=== PATIENT | male | born 1955 | race Caucasian/White ===

== ENCOUNTER 2017-07-16 20:29 | Observation (INO) | payer OTHER ==
[~2017-07-16] VITALS: Ht 174 cm; Wt 88.4 kg
[2017-07-16 20:30] VITALS: O2SAT 97
[2017-07-16] MEDS ORDERED: SODIUM CHLOR 0.9% 1000 ML INJ 1,000 ML IV ONE (20:35)
[2017-07-16 20:46] LABS: AUTOMATED NEUTROPHIL # 7.1 TH/MM3 (1.8-7.7); BASOPHIL # 0.2 TH/MM3 (0-0.2); BASOPHIL % 1.4 % (0.0-2.0); EOSINOPHIL # 0.2 TH/MM3 (0-0.4); EOSINOPHIL % 1.7 % (0.0-4.0); HEMATOCRIT 39.5 % (39.0-51.0); LYMPH % 22.2 % (9.0-44.0); LYMPHOCYTE # 2.4 TH/MM3 (1.0-4.8); MEAN CELL VOLUME 88.9 FL (80.0-100.0); MEAN CORPUSCULAR HEMOGLOBIN 29.3 PG (27.0-34.0); MEAN CORPUSCULAR HGB CONC 32.9 % (32.0-36.0); MEAN PLATELET VOLUME 8.2 FL (7.0-11.0); MONO % 7.6 % (0.0-8.0); MONOCYTE # 0.8 TH/MM3 (0-0.9); NEUT % 67.1 % (16.0-70.0); PLATELET COUNT 346 TH/MM3 (150-450); RED BLOOD COUNT 4.45 MIL/MM3 (4.50-5.90); RED CELL DISTRIBUTION WIDTH 14.5 % (11.6-17.2); WHITE BLOOD COUNT 10.8 TH/MM3 (4.0-11.0)
--- NOTE | 2017-07-16 20:48 | PD ---
HPI Chief Complaint: Stroke Alert Time Seen by Provider: 20:34 Travel History International Travel<30 days: No Contact w/Intl Traveler<30days: No Traveled to known affect area: No History of Present Illness HPI This patient is brought in as a stroke alert. He is a 62-year-old male with history of CO and prior stroke. He is on baby aspirin and Plavix daily. Some point today he developed speech slurring which is new for him. It is unclear when. I spoke to his sister who is his medical power of endocrinology physician and she called paramedics when the apartment physical plant manager noticed him slurring his words was prior to arrival but it is unclear how long it has been going on. The patient has history of cognitive delay from prior stroke. His sister spoke with him yesterday and he was speaking fine. He is not having motor weakness or sensory loss. Symptom severity is moderate. Duration unknown. No alleviating factors. No exacerbating factors. PFSH Social History Alcohol Use: No Tobacco Use: No Substance Use: No Allergies-Medications (Allergen,Severity, Reaction): Coded Allergies: No Known Allergies (Unverified , 07/16/17) Reported Meds & Prescriptions Reported Meds & Active Scripts Active Reported Atorvastatin (Atorvastatin Calcium) 80 Mg Tab 80 Mg PO HS Terazosin (Terazosin HCl) 2 Mg Cap 2 Mg PO HS Hydralazine (Hydralazine HCl) 100 Mg Tab 25 Mg PO TID Take with meals Lorazepam 0.5 Mg Tab 0.5 Mg PO Q8H PRN Carvedilol 6.25 Mg Tab 6.25 Mg PO BID Plavix (Clopidogrel Bisulfate) 75 Mg Tab 75 Mg PO DAILY Aspirin 81 Mg Chew 81 Mg CHEW DAILY Amlodipine (Amlodipine Besylate) 10 Mg Tab 10 Mg PO DAILY Paroxetine (Paroxetine HCl) 10 Mg Tab 10 Mg PO DAILY Review of Systems General / Constitutional: No: Fever Eyes: No: Visual changes HENT: No: Headaches Cardiovascular: No: Chest Pain or Discomfort Respiratory: No: Shortness of Breath Gastrointestinal: No: Abdominal Pain Genitourinary: No: Dysuria Musculoskeletal: No: Pain Skin: No Rash Neurologic: Positive: Slurred Speech, No: Weakness Psychiatric: No: Depression Endocrine: No: Polydipsia Hematologic/Lymphatic: No: Easy Bruising Physical Exam Narrative GENERAL: Well-nourished, well-developed patient in no apparent distress. SKIN: Focused skin assessment reveals no rash and nodules. Skin is Warm and dry. HEAD: Atraumatic. Normocephalic. EYES: Pupils equal and round. No scleral icterus. No injection or drainage. ENT: No nasal bleeding or discharge. Mucous membranes pink and moist. NECK: Trachea midline. No JVD. CARDIOVASCULAR: Regular rate and rhythm. No murmur appreciated. RESPIRATORY: No accessory muscle use. Clear to auscultation. Breath sounds equal bilaterally. GASTROINTESTINAL: Abdomen soft, non-tender, nondistended. Hepatic and splenic margins not palpable. MUSCULOSKELETAL: No obvious deformities. No clubbing. No cyanosis. No edema. NEUROLOGICAL: Awake and alert. Has a subtle left-sided facial droop. Motor grossly within normal limits. slurred speech. Sensation subjectively intact PSYCHIATRIC: Appropriate mood and affect; insight and judgment is a bit diminished Data Data Last Documented VS Vital Signs Date Time Temp Pulse Resp B/P (MAP) Pulse Ox O2 Delivery O2 Flow Rate FiO2 07/16/17 21:14 76 18 96 Room Air 07/16/17 21:14 98.7 188/93 (124) 07/16/17 20:30 21 Orders Orders Neuro Checks Q2HX12,Q4H (07/16/17 20:35) Nursing Bedside Swallow Assess .ONCE (07/16/17 20:35) Activity Bed Rest (07/16/17 20:35) Prothrombin Time / Inr (Pt) (07/16/17 20:35) Act Partial Throm Time (Ptt) (07/16/17 20:35) Complete Blood Count With Diff (07/16/17 20:35) Basic Metabolic Panel (Bmp) (07/16/17 20:35) Fibrinogen (07/16/17 20:35) Creatine Kinase (Cpk) (07/16/17 20:35) Troponin I (07/16/17 20:35) Ua Includes Microscopic (07/16/17 20:35) Drug Screen, Random Urine (07/16/17 20:35) Type And Screen (07/16/17 20:35) Ct Brain W/O Iv Contrast(Rout) (07/16/17 ) Electrocardiogram (07/16/17 ) Consult Neurology (07/16/17 20:35) Sodium Chlor 0.9% 1000 Ml Inj (Ns 1000 M (07/16/17 20:35) Blood Glucose (07/16/17 20:35) Ecg Monitoring (07/16/17 20:35) Iv Access Insert/Monitor (07/16/17 20:35) NPO (07/16/17 20:35) Oximetry (07/16/17 20:35) Resp Oxygen Nc Stroke (07/16/17 ) (Hub Use Only)Inp Phy Cons/Ref (07/16/17 ) Place In Observation (07/16/17 ) Vital Signs (Adult) Q4H (07/16/17 21:55) Neuro Checks Q4H (07/16/17 21:55) Activity Oob With Assistance (07/16/17 21:55) Business Development Officer / Telemetry .CONTINUOUS (07/16/17 21:55) Diet Heart Healthy (07/17/17 Breakfast) Sodium Chloride 0.9% Flush (Ns Flush) (07/16/17 22:00) Sodium Chloride 0.9% Flush (Ns Flush) (07/17/17 09:00) Acetaminophen (Tylenol) (07/16/17 22:00) Ondansetron Inj (Zofran Inj) (07/16/17 22:00) Resp Oxygen Hussein C Titrat 1-4 L (07/16/17 ) Scd Bilateral/Knee High SUHA.BID (07/16/17 21:55) Naloxone Inj (Narcan Inj) (07/16/17 22:00) Magnesium Hydroxide Liq (Milk Of Magnesi (07/16/17 22:00) Sennosides (Senokot) (07/16/17 22:00) Bisacodyl Supp (Dulcolax Supp) (07/16/17 22:00) Lactulose Liq (Lactulose Liq) (07/16/17 22:00) Aspirin Ec (Ecotrin Ec) (07/17/17 09:00) Clopidogrel (Plavix) (07/17/17 09:00) Atorvastatin (Lipitor) (07/17/17 21:00) Admit Order (Ed Use Only) (07/16/17 22:14) Labs Laboratory Tests Test 07/16/17 20:35 White Blood Count 10.8 TH/MM3 Red Blood Count 4.45 MIL/MM3 Hemoglobin 13.0 GM/DL Hematocrit 39.5 % Mean Corpuscular Volume 88.9 FL Mean Corpuscular Hemoglobin 29.3 PG Mean Corpuscular Hemoglobin Concent 32.9 % Red Cell Distribution Width 14.5 % Platelet Count 346 TH/MM3 Mean Platelet Volume 8.2 FL Neutrophils (%) (Auto) 67.1 % Lymphocytes (%) (Auto) 22.2 % Monocytes (%) (Auto) 7.6 % Eosinophils (%) (Auto) 1.7 % Basophils (%) (Auto) 1.4 % Neutrophils # (Auto) 7.1 TH/MM3 Lymphocytes # (Auto) 2.4 TH/MM3 Monocytes # (Auto) 0.8 TH/MM3 Eosinophils # (Auto) 0.2 TH/MM3 Basophils # (Auto) 0.2 TH/MM3 CBC Comment DIFF FINAL Differential Comment Prothrombin Time 10.1 SEC Prothromb Time International Ratio 1.0 RATIO Activated Partial Thromboplast Time 20.7 SEC Fibrinogen 347 mg/dL Blood Urea Nitrogen 21 MG/DL Creatinine 1.90 MG/DL Random Glucose 103 MG/DL Calcium Level 9.1 MG/DL Sodium Level 141 MEQ/L Potassium Level 3.7 MEQ/L Chloride Level 110 MEQ/L Carbon Dioxide Level 23.3 MEQ/L Anion Gap 8 MEQ/L Estimat Glomerular Filtration Rate 36 ML/MIN Total Creatine Kinase 213 U/L Troponin I 0.04 NG/ML MDM Medical Decision Making Medical Screen Exam Complete: Yes Emergency Medical Condition: Yes Medical Record Reviewed: Yes Differential Diagnosis Acute ischemic stroke, hemorrhagic stroke, medication side effect Narrative Course I have reviewed the patient's electronic medical record. Patient has never been to this facility before. I spoke with sister for further history. He has history of CVA and CO and hypertension. He is on for 5 different antihypertensives. Also aspirin and Plavix daily. He saw Dr. Mills from neurology one time as an outpatient I ordered the stroke alert protocol After examination he went emergently to brain CT Neurologist was paged, I spoke with Dr. Conti Patient is not a TPA candidate. He agrees. There is no known time of onset so he does not meet any 3 hour window. Also, his NIH scale is exceedingly low. His only deficit is speech slurring. I reviewed brain CT with radiologist. There is large area of encephalomalacia from prior stroke. No acute hemorrhage Lab studies reviewed Patient is in a sinus rhythm He is hypertensive in the 180s systolic. He has chronic hypertension. We will use permissive hypertension and follow this and treat if above 220 systolic I reviewed with hospitalist Patient has an acute ischemic CVA manifesting primarily speech slurring and not a TPA candidate. He is recommending telemetry observation status Critical Care Narrative Aggregate critical care time was 35 minutes. Time to perform other separately billable procedures was not included in the critical care time. My time did not include minutes spent treating any other patients simultaneously or on activities that did not directly contribute to the patient's treatment. The services I provided to this patient were to treat and/or prevent clinically significant deterioration that could result in: Permanent neurologic deficit, brain stem herniation, cardiopulmonary arrest I provided critical care services requiring my management, as noted below: Chart data review, documentation time, medication orders and management, vital sign assessments/reviewing monitor data, ordering and reviewing lab tests, ordering and interpreting/reviewing x-rays and diagnostic studies, care of the patient and discussion of the patient with the admitting physicians. Diagnosis Primary Impression: Neurologic deficit due to acute ischemic cerebrovascular accident (CVA) Additional Impression: Accelerated hypertension Admitting Information Admitting Physician Requests: Observation Kwaku Francis MD July 16, 2017 20:48
[2017-07-16 20:53] LABS: BICARBONATE 23.3 MEQ/L (21.0-32.0); CALCIUM 9.1 MG/DL (8.5-10.1)
[2017-07-16 20:56] LABS: PROTHROMBIN TIME - PATIENT 10.1 SEC (9.8-11.6)
[2017-07-16 20:57] LABS: CREATININE 1.9 MG/DL (0.60-1.30)
[2017-07-16 21:01] LABS: TROPONIN I 0.04 NG/ML (0.02-0.05)
--- NOTE | 2017-07-16 21:01 | RADRPT ---
EXAM DATE: 07/16/2017 8:50 PM EDT AGE/SEX: 62 years / Male INDICATIONS: Stroke alert. Slurred speech. CLINICAL DATA: This is the patient's initial encounter. Patient reports that signs and symptoms have been present for 1 day and indicates a pain score of Nonresponsive. MEDICAL/SURGICAL HISTORY: Non-responsive. Non-responsive. RADIATION DOSE: 58.53 CTDI (mGy) COMPARISON: No prior [facility] exams available for comparison. Report was called to Dr. Callejas at 8:54 PM. TECHNIQUE: CT of the head without contrast. Using automated exposure control and adjustment of the mA and/or kV according to patient size, radiation dose was kept as low as reasonably achievable to ob tain optimal diagnostic quality images. FINDINGS: Cerebrum: There is a large area of encephalomalacia in the right temporal and parietal lobe correlat ing to the right middle cerebral artery distribution and characteristic of old infarction. There is m ild extra-axial enlargement of the right lateral ventricle. No evidence of midline shift. There is go od wilkins-white matter differentiation in the left hemisphere. No evidence of acute blood products. No extra-axial fluid or blood. Posterior Fossa: The cerebellum and brainstem are intact. The 4th ventricle is midline. The cerebe llopontine angle is unremarkable. Extracranial: The visualized portion of the orbits is intact. Skull: The calvaria is intact. No evidence of skull fracture. CONCLUSION: 1. Large old right MCA infarction. 2. No acute findings in the brain. Electronically signed by: Fawad Noe MD 07/16/2017 9:00 PM EDT
[2017-07-16 21:08] VITALS: RESP 18; O2SAT 96
[2017-07-16 21:14] VITALS: BP 188/93; PULSE 76; RESP 18; TEMP 98.7; O2SAT 96
[2017-07-16] MEDS ORDERED: ONDANSETRON HCL 4 MG/2 ML VIAL IVP PRN (22:00)
[2017-07-16] MEDS ORDERED: MAGNESIUM HYDROXIDE SUSP 30 ML CUP PO PRN (22:00)
[2017-07-16] MEDS ORDERED: NALOXONE HCL 0.4 MG/ML AMP IV PUSH PRN (22:00)
[2017-07-16] MEDS ORDERED: LACTULOSE SYRUP 20 GM/30 ML CUP PO PRN (22:00)
[2017-07-16] MEDS ORDERED: ACETAMINOPHEN 325 MG TAB PO PRN (22:00)
[2017-07-16] MEDS ORDERED: BISACODYL 10 MG SUPP RECTAL PRN (22:00)
[2017-07-16] MEDS ORDERED: SENNOSIDES 8.6 MG TAB PO PRN (22:00)
[2017-07-16] MEDS ORDERED: SODIUM CHLORIDE 0.9% FLUSH 10 ML FLUSH IV FLUSH PRN (22:00)
[2017-07-16] MEDS ORDERED: LORA0.5T PO (22:12)
[2017-07-16] MEDS ORDERED: TERA2CAP3 PO (22:12)
[2017-07-16] MEDS ORDERED: ASPI-516 CHEW (22:12)
[2017-07-16] MEDS ORDERED: HYDR-3801 PO (22:12)
[2017-07-16] MEDS ORDERED: PLAV75TA29 PO (22:12)
[2017-07-16] MEDS ORDERED: ATOR80TA45 PO (22:12)
[2017-07-16] MEDS ORDERED: PARO10TA2 PO (22:12)
[2017-07-16] MEDS ORDERED: AMLO10TA2 PO (22:12)
[2017-07-16] MEDS ORDERED: CARV6.252 PO (22:12)
[2017-07-16 22:20] VITALS: BP 171/78; PULSE 87; RESP 18; O2SAT 97
[2017-07-16 23:00] VITALS: PULSE 82
[2017-07-16 23:58] LABS: BILIRUBIN, URINE NEG (NEG); BLOOD, URINE NEG (NEG); GLUCOSE,URINE NEG (NEG); KETONE, URINE NEG (NEG); NITRITE,URINE NEG (NEG); PH, URINE 6.5 (5.0-8.5); URINE COLOR YELLOW (YELLW/STRAW); URINE LEUKOCYTE ESTERASE NEG (NEG)
[2017-07-17] VITALS (11 sets, daily range): BP systolic 146–181; BP diastolic 79–105; PULSE 63–82; RESP 18–20; TEMP 97.2–99.1; O2SAT 94–98
[2017-07-17 00:04] LABS: RBC, URINE 0-2 /hpf (0-3); SQUAMOUS EPITHELIAL CELL URINE 0-5 /hpf (0-5); WBC, URINE 0-2 /hpf (0-5)
[2017-07-17] MEDS: CLOPIDOGREL 75 MG TAB PO SCH (08:12)
[2017-07-17] MEDS: ASPIRIN EC 81 MG TABEC PO SCH (08:12)
[2017-07-17] MEDS: SODIUM CHLORIDE 0.9% FLUSH 10 ML FLUSH IV FLUSH SCH ×2 (08:15→22:03)
[2017-07-17] MEDS ORDERED: CLOPIDOGREL 75 MG TAB PO SCH (09:30)
[2017-07-17] MEDS ORDERED: PILL SPLITTER OTHER PRN (09:45)
[2017-07-17] MEDS: PARoxetine HCL 20 MG TAB PO SCH (09:51)
[2017-07-17] MEDS: CARVEDILOL 6.25 MG TAB PO SCH ×2 (09:51→22:03)
--- NOTE | 2017-07-17 11:05 | HHI.HP ---
[facility] Unknown Admission Diagnosis acute ischemic CVA Diagnoses: Chief Complaint: Slurred speech Travel History International Travel<30 Days: No Contact w/Intl Traveler <30 Da: No Traveled to Known Affected Are: No History of Present Illness This patient is a 62-year-old gentleman with a history of coronary disease, chronic kidney disease and a stroke. In and patient did have a large left him with residual upper left extremity weakness, cognitive impairment and MCA stroke which speech trouble as well as some left facial droop. I did speak at length with the sister who is the power of immigration attorney. Patient lives alone although she is frequently in town from [place]. She is unsure that he takes his medications as prescribed. In fact in the emergency room his blood pressure was 188/93. Patient had increased slurred speech which is why the family brought him to the hospital. Since his arrival to the emergency room this is reports his speech is closer to baseline but still not at baseline. Patient says he ambulates to walk the dog a mile a day. The sister says that is not true however he does drive and takes care of himself and his ADLs independently. He follows with his primary care doctor Dr. Ramirez, Dr. Mcintyre , and dr Somers. In 2005 he had a heart attack and he had quite a bit of occlusion but per the sister is nonsurgical due to poor cardiac status. Patient subsequently had a stroke in 2016. 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 He occasionally takes Tylenol for back pain, but otherwise reports a reasonable state of health given his chronic medical conditions. I did discuss with the patient regarding rehab evaluation and he has refused. The patient's sister says that he will need rehab as she is worried that he is not taking care of himself at home. After his stroke the patient did do a stent in rehab in [place]. Patient has refused further imaging and would like to go home. Sister will discuss with him regarding further treatment options. Review of Systems Constitutional: DENIES: Diaphoretic episodes, Fatigue, Fever, Weight gain, Weight loss, Chills, Dizziness, Change in appetite, Night Sweats Endocrine: DENIES: Heat/cold intolerance, Polydipsia, Polyuria, Polyphagia Eyes: DENIES: Blurred vision, Diplopia, Eye inflammation, Eye pain, Vision loss , Photosensitivity, Double Vision Ears, nose, mouth, throat: DENIES: Tinnitus, Hearing loss, Vertigo, Nasal discharge, Oral lesions, Throat pain, Hoarseness, Ear Pain, Running Nose, Epistaxis, Sinus Pain, Toothache, Odynophagia Respiratory: DENIES: Apneas, Cough, Snoring, Wheezing, Hemoptysis, Sputum production, Shortness of breath Cardiovascular: DENIES: Chest pain, Palpitations, Syncope, Dyspnea on Exertion , PND, Lower Extremity Edema, Orthopnea, Claudication Gastrointestinal: DENIES: Abdominal pain, Black stools, Bloody stools, Constipation, Diarrhea, Nausea, Vomiting, Difficulty Swallowing, Anorexia Genitourinary: DENIES: Sexual dysfunction, Urinary frequency, Urinary incontinence, Urgency, Hematuria, Dysuria, Nocturia, Penile Discharge, Testicular Pain, Testicular Swelling Musculoskeletal: DENIES: Joint pain, Muscle aches, Stiffness, Joint Swelling, Back pain, Neck pain Integumentary: DENIES: Abnormal pigmentation, Nail changes, Pruritus, Rash Hematologic/lymphatic: DENIES: Bruising, Lymphadenopathy Immunologic/allergic: DENIES: Eczema, Urticaria Neurologic: COMPLAINS OF: Localized weakness, Speech Problems, Poor Balance, DENIES: Abnormal gait, Headache, Paresthesias, Seizures, Tremor Psychiatric: DENIES: Anxiety, Confusion, Mood changes, Depression, Hallucinations, Agitation, Suicidal Ideation, Homicidal Ideation, Delusions Except as stated in HPI: all other systems reviewed are Neg Past Family Social History Past Medical History CVA (Cognitive impaired, left-sided weakness and left facial weakness with slurred speech at baseline as residual deficits) CKD Cognitive impairment Hypertension Coronary artery disease status post NM with occlusion, nonsurgical per family Past Surgical History Denies Reported Medications Reviewed in the EMR, adherence is questionable given the patient's cognitive impairment and living home alone Allergies: Coded Allergies: No Known Allergies (Unverified , 07/16/17) Active Ordered Medications Reviewed in the EMR Family History Hypertension Social History Lives alone Discontinue tobacco and alcohol 2005 Physical Exam Vital Signs Vital Signs Date Time Temp Pulse Resp B/P (MAP) Pulse Ox O2 Delivery O2 Flow Rate FiO2 07/17/17 08:20 63 07/17/17 07:50 97.9 72 20 159/79 (105) 95 07/17/17 04:00 99.1 82 20 174/105 (128) 98 07/17/17 02:07 98.5 75 18 146/85 (105) 96 07/17/17 00:00 99.1 80 18 181/103 (129) 97 07/16/17 23:46 07/16/17 23:00 82 07/16/17 22:20 87 18 171/78 (109) 97 Room Air 07/16/17 21:14 76 18 96 Room Air 07/16/17 21:14 98.7 76 18 188/93 (124) 96 Room Air 07/16/17 21:08 18 96 Room Air 07/16/17 21:08 96 Room Air 07/16/17 20:30 97 21 07/16/17 20:30 97 21 Physical Exam GENERAL: This is a well-nourished, well-developed patient, left facial droop at baseline SKIN: No rashes, ecchymoses or lesions. Cool and dry. HEAD: Atraumatic. Normocephalic. No temporal or scalp tenderness. EYES: Pupils equal round and reactive. Extraocular motions intact. No scleral icterus. No injection or drainage. ENT: Nose without bleeding, purulent drainage or septal hematoma. Throat without erythema, tonsillar hypertrophy or exudate. Uvula midline. Airway patent. NECK: Trachea midline. No JVD or lymphadenopathy. Supple, nontender, no meningeal signs. CARDIOVASCULAR: Regular rate and rhythm without murmurs, gallops, or rubs. RESPIRATORY: Clear to auscultation. Breath sounds equal bilaterally. No wheezes , rales, or rhonchi. GASTROINTESTINAL: Abdomen soft, non-tender, nondistended. No hepato-splenomegaly , or palpable masses. No guarding. MUSCULOSKELETAL: Extremities without clubbing, cyanosis, or edema. No joint tenderness, effusion, or edema noted. No calf tenderness. Negative Homans sign bilaterally. NEUROLOGICAL: Awake and alert. Cranial nerves II through XII intact. Motor and sensory grossly within normal limits. left sided upper ext weakness. slurred speech worse than baseline Laboratory Laboratory Tests Test 07/16/17 20:35 07/16/17 23:45 White Blood Count 10.8 Red Blood Count 4.45 Hemoglobin 13.0 Hematocrit 39.5 Mean Corpuscular Volume 88.9 Mean Corpuscular Hemoglobin 29.3 Mean Corpuscular Hemoglobin Concent 32.9 Red Cell Distribution Width 14.5 Platelet Count 346 Mean Platelet Volume 8.2 Neutrophils (%) (Auto) 67.1 Lymphocytes (%) (Auto) 22.2 Monocytes (%) (Auto) 7.6 Eosinophils (%) (Auto) 1.7 Basophils (%) (Auto) 1.4 Neutrophils # (Auto) 7.1 Lymphocytes # (Auto) 2.4 Monocytes # (Auto) 0.8 Eosinophils # (Auto) 0.2 Basophils # (Auto) 0.2 CBC Comment DIFF FINAL Differential Comment Prothrombin Time 10.1 Prothromb Time International Ratio 1.0 Activated Partial Thromboplast Time 20.7 Fibrinogen 347 Blood Urea Nitrogen 21 Creatinine 1.90 Random Glucose 103 Calcium Level 9.1 Sodium Level 141 Potassium Level 3.7 Chloride Level 110 Carbon Dioxide Level 23.3 Anion Gap 8 Estimat Glomerular Filtration Rate 36 Total Creatine Kinase 213 Troponin I 0.04 Urine Color YELLOW Urine Turbidity CLEAR Urine pH 6.5 Urine Specific [place] 1.020 Urine Protein 30 Urine Glucose (UA) NEG Urine Ketones NEG Urine Occult Blood NEG Urine Nitrite NEG Urine Bilirubin NEG Urine Urobilinogen 0.2 Urine Leukocyte Esterase NEG Urine RBC 0-2 Urine WBC 0-2 Urine Squamous Epithelial Cells 0-5 Urine Bacteria NONE Urine Opiates Screen NEG Urine Barbiturates Screen NEG Urine Amphetamines Screen NEG Urine Benzodiazepines Screen NEG Urine Cocaine Screen NEG Urine Cannabinoids Screen NEG Result Diagram: 07/16/[id number]/16/172034 Imaging CT head: Large old right MCA infarction. Caprini VTE Risk Assessment Caprini VTE Risk Assessment: Mod/High Risk (score >= 2) Caprini Risk Assessment Model Point Value = 1 Point Value = 2 Point Value = 3 Point Value = 5 Age 41-60 Minor surgery BMI > 25 kg/m2 Swollen legs Varicose veins or History of unexplained or recurrent spontaneous Oral contraceptives or hormone replacement Sepsis (< 1 month) Serious lung disease, including pneumonia (< 1 month) Abnormal pulmonary function Acute myocardial infarction Congestive heart failure (< 1 month) History of inflammatory bowel disease Medical patient at bed rest Age 61-74 Arthroscopic surgery Major open surgery (> 45 min) Laparoscopic surgery (> 45 min) Malignancy Confined to bed (> 72 hours) Immobilizing plaster cast Central venous access Age >= 75 History of VTE Family history of VTE Factor V Leiden Prothrombin [id number] Lupus anticoagulant Anticardiolipin antibodies Elevated serum homocysteine Heparin-induced thrombocytopenia Other congenital or acquired thrombophilia Stroke (< 1 month) Elective arthroplasty Hip, pelvis, or leg fracture Acute spinal cord injury (< 1 month) Prophylaxis Regimen Total Risk Factor Score Risk Level Prophylaxis Regimen 0-1 Low Early ambulation 2 Moderate Order ONE of the following: *Sequential Compression Device (SCD) *Heparin 5000 units SQ BID 3-4 Higher Order ONE of the following medications: *Heparin 5000 units SQ TID *Enoxaparin/Lovenox 40 mg SQ daily (WT < 150 kg, CrCl > 30 mL/min) *Enoxaparin/Lovenox 30 mg SQ daily (WT < 150 kg, CrCl > 10-29 mL/min) *Enoxaparin/Lovenox 30 mg SQ BID (WT < 150 kg, CrCl > 30 mL/min) AND/OR *Sequential Compression Device (SCD) 5 or more Highest Order ONE of the following medications: *Heparin 5000 units SQ TID (Preferred with Epidurals) *Enoxaparin/Lovenox 40 mg SQ daily (WT < 150 kg, CrCl > 30 mL/min) *Enoxaparin/Lovenox 30 mg SQ daily (WT < 150 kg, CrCl > 10-29 mL/min) *Enoxaparin/Lovenox 30 mg SQ BID (WT < 150 kg, CrCl > 30 mL/min) AND *Sequential Compression Device (SCD) Assessment and Plan Problem List: (1) Cognitive impairment ICD Code: R41.89 - Other symptoms and signs involving cognitive functions and awareness Plan: At baseline but independent with ADLs Sister is power of immigration attorney will continue to discuss treatment plans with the patient and medical team (2) CKD (chronic kidney disease) stage 3, GFR 30-59 ml/min ICD Code: N18.3 - Chronic kidney disease, stage 3 (moderate) Plan: Currently at baseline Avoid nephrotoxins (3) Neurologic deficit due to acute ischemic cerebrovascular accident (CVA) ICD Code: I63.9 - Cerebral infarction, unspecified; R29.818 - Other symptoms and signs involving the nervous system Status: Acute Plan: Likely acute stroke. Patient has refused further imaging and further testing. He will agreed to inpatient evaluation by rehab team but has declined any rehab placement options The patient will continue to discuss this with his sister In the meantime we will continue with atorvastatin, blood pressure management Patient's Plavix and aspirin may need to be adjusted to full anticoagulation Neurology consult pending repeat non contrasted ct in am may warrant palliative eval given patient's cardiac status, poor adherence and apparent personal desire for nonaggressive care Code Status full code Discussed Condition With Patient, sister Carissa (lives in [place]) Physician Certification 2 Midnight Certification Type: Admission for Inpatient Services Order for Inpatient Services The services are ordered in accordance with Medicare regulations or non- Medicare payer requirements, as applicable. In the case of services not specified as inpatient-only, they are appropriately provided as inpatient services in accordance with the 2-midnight benchmark. Estimated LOS (days): 3 3 days is the estimated time the patient will need to remain in the hospital, assuming treatment plan goals are met and no additional complications. Post-Hospital Plan: Home Fartun Recinos MD July 17, 2017 11:04
[2017-07-17] MEDS: hydrALAZINE HCL 25 MG TAB PO SCH ×2 (12:52→17:35)
[2017-07-17] MEDS ORDERED: hydrALAZINE HCL 100 MG TAB PO SCH (13:00)
--- NOTE | 2017-07-17 15:00 | EKG ---
Date Performed: 07/16/2017 Time Performed: 21:15:05 PTAGE: 62 years EKG: Baseline artifact present Sinus rhythm ANTEROSEPTAL MYOCARDIAL INFARCTION NO PREVIOUS TRACING DOCTOR: Willie Moreau Interpretating Date/Time 07/17/2017 14:58:45
--- NOTE | 2017-07-17 16:11 | MB ---
cc: Shima Kolb MD DATE: 07/17/2017 DATE OF : 1955 AGE: [age] years old. REASON FOR CONSULTATION: Possible stroke. HISTORY OF PRESENT ILLNESS: The patient is a 62-year-old man with a history of heart disease, chronic renal disease and stroke in 2016, left MCA, which left him with some residual weakness on the left side, mostly upper, some cognitive impairment, some speech issues, facial droop. The patient is a poor historian. He apparently came in with ER with elevated blood pressure, some possible increased slurring of speech. It is difficult to tell if his speech is back at baseline. He usually ambulates on his own. He states he walks the dog every day; however, does drive and take care of himself and does his ADLs. He also in 2005 had an ID. The patient will not do an MRI due to the fact that he is claustrophobic and does not want any medicines due to his kidneys. PAST MEDICAL HISTORY: As stated. PAST SURGICAL HISTORY: Denies. MEDICINES: Please refer to his MAR, but he states he takes aspirin on a daily basis. Looking back at the ED report, he takes Plavix as well. He is also on: 1. Atorvastatin 80 mg. 2. Terazosin. 3. Hydralazine. 4. Lorazepam. 5. Carvedilol. 6. Amlodipine. 7. Paroxetine. 8. Plavix 75 mg. 9. 81 mg aspirin. PHYSICAL EXAMINATION. VITAL SIGNS: Temperature 97.9, pulse 63, respiratory rate 20, blood pressure 159/79. NECK: Supple. I do not appreciate any bruits. HEART: Regular. LUNGS: Clear. NEUROLOGICAL EXAMINATION: He is awake and alert, slightly slurred with left facial asymmetry, mild left-sided weakness. Tone is intact. Cgasan-nhay-gxcwvn is normal on the right and slower on the left. DTRs are 1+. Toes are neutral. Gait is withheld. LABORATORY DATA: CBC is really unremarkable. Chemistries: BUN 21, creatinine 1.9, GFR is 36. Tox screen is negative. Urine is unremarkable except for 30 protein and his PTT is 20.7. IMAGING STUDIES: Imaging just shows an old left MCA infarct. IMPRESSION AND PLAN: Questionable new infarct, although the patient declined to do an MRI. Repeat CT will be done tomorrow for comparison. Echo is pending as well. Continue his Plavix. Certainly his baby aspirin can be changed to 2 baby aspirins. Check a lipid panel. SCDs, Lovenox and/or heparin for deep venous thrombosis . Physical therapy, occupational therapy, speech therapy evaluation. If his workup his unremarkable, can be discharged home or to a rehab facility depending on how he does with physical therapy. Certainly he can always have an open MRI as an outpatient if he chooses to allow it. Continue current care. MD JODIE Anguiano/JUN , 03:45 PM , 04:09 PM
[2017-07-17] MEDS ORDERED: ATORVASTATIN 40 MG TAB PO SCH (21:00)
[2017-07-17] MEDS: TERAZOSIN HCL 1 MG CAP PO SCH (22:03)
[2017-07-17] MEDS: ATORVASTATIN 40 MG TAB PO SCH (22:03)
[2017-07-18] VITALS (7 sets, daily range): BP systolic 153–168; BP diastolic 70–96; PULSE 58–73; RESP 18–20; TEMP 96.6–99.5; O2SAT 95–97
--- NOTE | 2017-07-18 05:32 | RADRPT ---
EXAM DATE: 07/18/2017 5:21 AM EDT AGE/SEX: 62 years / Male INDICATIONS: Altered mental status. Follow up stroke alert, slurred speech. CLINICAL DATA: This is the patient's subsequent encounter. Patient reports that signs and symptoms h ave been present for 2 days and indicates a pain score of 0/10. MEDICAL/SURGICAL HISTORY: Cerebrovascular disease. Hypertension. None. RADIATION DOSE: 57.64 CTDI (mGy) COMPARISON: [facility], CT BRAIN W/O CONTRAST, 07/16/2017. . TECHNIQUE: CT of the head without contrast. Using automated exposure control and adjustment of the mA and/or kV according to patient size, radiation dose was kept as low as reasonably achievable to ob tain optimal diagnostic quality images. FINDINGS: Cerebrum: There is a large area of encephalomalacia again noted involving the right middle cerebral artery territory involving portions of the right frontal, parietal and temporal lobes. There is diffu se atrophic change. The ventricular system remains within normal limits. No evidence of midline shift , mass lesion, hemorrhage or acute infarction. No extraaxial fluid collections are seen. Posterior Fossa: The cerebellum and brainstem are intact. The 4th ventricle is midline. The cerebe llopontine angle is unremarkable. Extracranial: The visualized portion of the orbits is intact. Skull: The calvaria is intact. No evidence of skull fracture. CONCLUSION: 1. No acute hemorrhage or mass effect. 2. Old right middle cerebral territory infarct. 3. Diffuse atrophy. Electronically signed by: Lazaro Cadena MD 07/18/2017 5:31 AM EDT
[2017-07-18] MEDS: CARVEDILOL 6.25 MG TAB PO SCH ×2 (09:42→21:08)
[2017-07-18] MEDS: hydrALAZINE HCL 25 MG TAB PO SCH (09:42)
[2017-07-18] MEDS: ASPIRIN EC 81 MG TABEC PO SCH (09:42)
[2017-07-18] MEDS: CLOPIDOGREL 75 MG TAB PO SCH (09:42)
[2017-07-18] MEDS: PARoxetine HCL 20 MG TAB PO SCH (09:42)
[2017-07-18] MEDS: SODIUM CHLORIDE 0.9% FLUSH 10 ML FLUSH IV FLUSH SCH ×2 (09:46→21:00)
--- NOTE | 2017-07-18 13:18 | HHI.PR ---
Subjective Remarks Follow-up questionable new infarct July 19, 2027-patient seen and examined, repeat head CT unremarkable. Patient denies any acute event overnight. Stated he would like to go home instead of SNF. Vitals stable. Objective Vitals Vital Signs Date Time Temp Pulse Resp B/P (MAP) Pulse Ox O2 Delivery O2 Flow Rate FiO2 07/18/17 11:49 96.6 72 18 168/89 (115) 96 07/18/17 08:59 155/70 (98) 07/18/17 07:00 97.2 69 18 163/79 (107) 97 07/18/17 04:00 99.1 72 20 153/96 (115) 96 07/18/17 00:11 99.5 73 20 155/95 (115) 95 07/17/17 21:00 72 07/17/17 20:47 98.3 71 20 162/95 (117) 94 07/17/17 19:45 97 21 07/17/17 15:00 97.2 77 18 179/88 (118) 97 I/O 07/17/17 07/17/17 07/17/17 07/18/17 07/18/17 07/18/17 07:00 15:00 23:00 07:00 15:00 23:00 Intake Total 675 ml 221 ml Output Total 200 ml 300 ml 450 ml Balance 475 ml -300 ml -229 ml Intake Oral 221 ml IV Total 675 ml Output Urine Total 200 ml 300 ml 450 ml # Voids 1 4 100 # Bowel Movements 0 Result Diagram: 07/16/17203407/16/172034 Imaging Last Impressions Head CT 07/18/17 0600 Signed Impressions: CONCLUSION: 1. No acute hemorrhage or mass effect. 2. Old right middle cerebral territory infarct. 3. Diffuse atrophy. Objective Remarks GENERAL: NAD SKIN: Warm and dry. HEAD: Normocephalic. EYES: No scleral icterus. No injection or drainage. NECK: Supple, trachea midline. No JVD or lymphadenopathy. CARDIOVASCULAR: Regular rate and rhythm without murmurs, gallops, or rubs. RESPIRATORY: Breath sounds equal bilaterally. No accessory muscle use. GASTROINTESTINAL: Abdomen soft, non-tender, nondistended. MUSCULOSKELETAL: No cyanosis, or edema. BACK: Nontender without obvious deformity. No CVA tenderness. Last Impressions A/P Problem List: (1) Cognitive impairment ICD Code: R41.89 - Other symptoms and signs involving cognitive functions and awareness (2) CKD (chronic kidney disease) stage 3, GFR 30-59 ml/min ICD Code: N18.3 - Chronic kidney disease, stage 3 (moderate) (3) Neurologic deficit due to acute ischemic cerebrovascular accident (CVA) ICD Code: I63.9 - Cerebral infarction, unspecified; R29.818 - Other symptoms and signs involving the nervous system Status: Acute Assessment and Plan 62-year-old man with Questionable new infarct Repeat head CT July 18, 2017 unremarkable Patient has refused brain MRI Appreciate input from neurology Continue with aspirin, Plavix, Statin PT to treat any above Chronic kidney disease stage III Currently at baseline Avoid all nephrotoxic drug History of hypertension Increase hydralazine to 50 mg every 8, continue Norvasc 10 mg daily and Coreg 6.25 mg twice daily Hyperlipidemia Currently on Statin DVT prophylaxis: B-SCDs Discharge Planning Discharge patient to home Condition on discharge: Improved Regular Diet as tolerated [facility] Rx written:see EMR Follow-up with primary care physician in 1week Giovanny Cesar MD July 18, 2017 13:18
[2017-07-18] MEDS ORDERED: HYDR-3799 PO (13:28)
--- NOTE | 2017-07-18 17:19 | ECHRPT ---
Indication: CVA/TIA CONCLUSIONS Moderately dilated left ventricle. Wall thickness is measured at the upper limits of normal. The left ventricular systolic function is jqsycdzf-am-vakjfrj reduced with an estimated ejection fra ction in the range of 35-40%. can not rule out severe hypokinesis of the distal anterior, apical wall Trace mitral regurgitation. Aortic valve sclerosis is present. There is trace tricuspid valve regurgitation. BP: 153 / 96 HR: 72 Rhythm: Sinus MEASUREMENTS (Male / Female) Normal Values Technical Quality:Technically difficult study 2D ECHO LV Diastolic Diameter PLAX 7.2 cm 4.2 - 5.9 / 3.9 - 5.3 cm LV Systolic Diameter PLAX 6.5 cm IVS Diastolic Thickness 1.0 cm 0.6 - 1.0 / 0.6 - 0.9 cm LVPW Diastolic Thickness 1.0 cm 0.6 - 1.0 / 0.6 - 0.9 cm LV Relative Wall Thickness 0.3 LVOT Diameter 1.9 cm Aortic Root Diameter 3.7 cm M-MODE AV Cusp Separation MM 2.0 cm DOPPLER AV Peak Velocity 168.0 cm/s AV Peak Gradient 11.3 mmHg AV Mean Gradient 6.0 mmHg AV Velocity Time Integral 33.3 cm LVOT Peak Velocity 67.7 cm/s LVOT Peak Gradient 1.8 mmHg LVOT Velocity Time Integral 13.6 cm AV Area Cont Eq vti 1.2 cm AV Area Cont Eq pk 1.1 cm Mitral E Point Velocity 70.1 cm/s Mitral A Point Velocity 87.9 cm/s Mitral E to A Ratio 0.8 LV E' Lateral Velocity 3.9 cm/s Mitral E to LV E' Lateral Ratio 18.0 LV E' Septal Velocity 4.6 cm/s Mitral E to LV E' Septal Ratio 15.3 TR Peak Velocity 157.0 cm/s TR Peak Gradient 9.9 mmHg PV Peak Velocity 69.2 cm/s PV Peak Gradient 1.9 mmHg FINDINGS LEFT VENTRICLE Moderately dilated left ventricle. Wall thickness is measured at the upper limits of normal. The left ventricular systolic function is gqhionqi-hs-vasacjl reduced with an estimated ejection fra ction in the range of 35-40%. There is global hypokinesis with distinct regional wall motion abnormalities. RIGHT VENTRICLE Normal right ventricular size and systolic function. LEFT ATRIUM The left atrial size is normal. RIGHT ATRIUM The right atrial size is normal. ATRIAL SEPTUM The interatrial septum not well visualized. AORTA The aortic root and proximal ascending aorta are not well visualized. MITRAL VALVE Structurally normal mitral valve. No mitral valve stenosis. Trace mitral regurgitation. AORTIC VALVE Aortic valve sclerosis is present. TRICUSPID VALVE There is trace tricuspid valve regurgitation. PULMONARY VALVE No pulmonary valve regurgitation or stenosis. VESSELS The inferior vena cava is normal in size. PERICARDIUM No pericardial effusion. Surendra Saldaña MD, FACC, [facility] (Electronically Signed) Final Date:18 Jul 2017 17:17
[2017-07-18] MEDS: hydrALAZINE HCL 50 MG TAB PO SCH (18:56)
[2017-07-18] MEDS: ATORVASTATIN 40 MG TAB PO SCH (21:07)
[2017-07-18] MEDS: TERAZOSIN HCL 1 MG CAP PO SCH (21:08)
[2017-07-19 00:01] VITALS: BP 160/91; PULSE 58; RESP 20; TEMP 97.2; O2SAT 94
[2017-07-19 04:12] VITALS: BP 143/77; PULSE 63; RESP 20; TEMP 97.1; O2SAT 98
[2017-07-19] MEDS: CLOPIDOGREL 75 MG TAB PO SCH (08:12)
[2017-07-19] MEDS: PARoxetine HCL 20 MG TAB PO SCH (08:12)
[2017-07-19] MEDS: CARVEDILOL 6.25 MG TAB PO SCH ×2 (08:12→20:39)
[2017-07-19] MEDS: ASPIRIN EC 81 MG TABEC PO SCH (08:12)
[2017-07-19] MEDS: hydrALAZINE HCL 50 MG TAB PO SCH ×3 (08:12→17:43)
[2017-07-19] MEDS: SODIUM CHLORIDE 0.9% FLUSH 10 ML FLUSH IV FLUSH SCH ×2 (08:16→20:41)
[2017-07-19 08:35] VITALS: BP_SYST 132; BP_SYST 151; BP_DIAS 80; BP_DIAS 85; PULSE 58; PULSE 87; RESP 17; RESP 20; TEMP 97.6; TEMP 98.2; O2SAT 95; O2SAT 97
--- NOTE | 2017-07-19 10:04 | HHI.PR ---
Subjective Remarks Follow-up questionable new infarct July 19, 2027-patient seen and examined, repeat head CT unremarkable. Patient denies any acute event overnight. Stated he would like to go home instead of SNF. Vitals stable. July 19, 2017-patient seen and examined, no acute event overnight. Awaiting for discharge to SNF today Objective Vitals Vital Signs Date Time Temp Pulse Resp B/P (MAP) Pulse Ox O2 Delivery O2 Flow Rate FiO2 07/19/17 08:35 97.6 58 17 151/85 (107) 97 07/19/17 04:12 97.1 63 20 143/77 (99) 98 07/19/17 00:01 97.2 58 20 160/91 (114) 94 07/18/17 22:03 65 07/18/17 11:49 96.6 72 18 168/89 (115) 96 I/O 07/18/17 07/18/17 07/18/17 07/19/17 07/19/17 07/19/17 07:00 15:00 23:00 07:00 15:00 23:00 Intake Total 600 ml Balance 600 ml Intake Oral 600 ml # Voids 100 3 2 Result Diagram: 07/16/17203407/16/172034 Objective Remarks GENERAL: NAD SKIN: Warm and dry. HEAD: Normocephalic. EYES: No scleral icterus. No injection or drainage. NECK: Supple, trachea midline. No JVD or lymphadenopathy. CARDIOVASCULAR: Regular rate and rhythm without murmurs, gallops, or rubs. RESPIRATORY: Breath sounds equal bilaterally. No accessory muscle use. GASTROINTESTINAL: Abdomen soft, non-tender, nondistended. MUSCULOSKELETAL: No cyanosis, or edema. BACK: Nontender without obvious deformity. No CVA tenderness. Last Impressions A/P Problem List: (1) Cognitive impairment ICD Code: R41.89 - Other symptoms and signs involving cognitive functions and awareness (2) CKD (chronic kidney disease) stage 3, GFR 30-59 ml/min ICD Code: N18.3 - Chronic kidney disease, stage 3 (moderate) (3) Neurologic deficit due to acute ischemic cerebrovascular accident (CVA) ICD Code: I63.9 - Cerebral infarction, unspecified; R29.818 - Other symptoms and signs involving the nervous system Status: Acute Assessment and Plan 62-year-old man with Questionable new infarct Repeat head CT July 18, 2017 unremarkable Patient has refused brain MRI Appreciate input from neurology Continue with aspirin, Plavix, Statin PT to treat any above Chronic kidney disease stage III Currently at baseline Avoid all nephrotoxic drug History of hypertension Continue hydralazine 50 mg every 8, Norvasc 10 mg daily and Coreg 6.25 mg twice daily Hyperlipidemia Currently on Statin DVT prophylaxis: B-SCDs Discharge Planning Discharge patient to home Condition on discharge: Improved Regular Diet as tolerated [facility] activity Rx written:see EMR Follow-up with primary care physician in 1week Giovanny Cesar MD July 19, 2017 10:04
--- NOTE | 2017-07-19 10:05 | HHI.DS ---
Discharge Summary Admission Date July 16, 2017 at 22:15 Discharge Date: July 19, 2017 Admitting Diagnosis acute ischemic CVA (1) Cognitive impairment ICD Code: R41.89 - Other symptoms and signs involving cognitive functions and awareness (2) CKD (chronic kidney disease) stage 3, GFR 30-59 ml/min ICD Code: N18.3 - Chronic kidney disease, stage 3 (moderate) (3) Neurologic deficit due to acute ischemic cerebrovascular accident (CVA) ICD Code: I63.9 - Cerebral infarction, unspecified; R29.818 - Other symptoms and signs involving the nervous system Status: Acute Procedures None Brief History - From Admission This patient is a 62-year-old gentleman with a history of coronary disease, chronic kidney disease and a stroke. In and patient did have a large left him with residual upper left extremity weakness, cognitive impairment and MCA stroke which speech trouble as well as some left facial droop. I did speak at length with the sister who is the power of personal lines insurance advisor. Patient lives alone although she is frequently in town from [place]. She is unsure that he takes his medications as prescribed. In fact in the emergency room his blood pressure was 188/93. Patient had increased slurred speech which is why the family brought him to the hospital. Since his arrival to the emergency room this is reports his speech is closer to baseline but still not at baseline. Patient says he ambulates to walk the dog a mile a day. The sister says that is not true however he does drive and takes care of himself and his ADLs independently. He follows with his primary care doctor Dr. Ramirez, Dr. Mcintyre , and dr Somers. In 2006 he had a heart attack and he had quite a bit of occlusion but per the sister is nonsurgical due to poor cardiac status. Patient subsequently had a stroke in 2016. 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 He occasionally takes Tylenol for back pain, but otherwise reports a reasonable state of health given his chronic medical conditions. I did discuss with the patient regarding rehab evaluation and he has refused. The patient's sister says that he will need rehab as she is worried that he is not taking care of himself at home. After his stroke the patient did do a stent in rehab in [place]. Patient has refused further imaging and would like to go home. Sister will discuss with him regarding further treatment options. CBC/BMP: 07/16/17203407/16/172034 Significant Findings Laboratory Tests Test 07/16/17 20:35 07/16/17 23:45 Red Blood Count 4.45 MIL/MM3 (4.50-5.90) Activated Partial Thromboplast Time 20.7 SEC (24.3-30.1) Blood Urea Nitrogen 21 MG/DL (7-18) Creatinine 1.90 MG/DL (0.60-1.30) Chloride Level 110 MEQ/L (98-107) Estimat Glomerular Filtration Rate 36 ML/MIN (>89) Urine Protein 30 mg/dL (NEG-TRACE) Imaging Last Impressions Head CT 07/18/17 0600 Signed Impressions: CONCLUSION: 1. No acute hemorrhage or mass effect. 2. Old right middle cerebral territory infarct. 3. Diffuse atrophy. PE at Discharge GENERAL: NAD SKIN: Warm and dry. HEAD: Normocephalic. EYES: No scleral icterus. No injection or drainage. NECK: Supple, trachea midline. No JVD or lymphadenopathy. CARDIOVASCULAR: Regular rate and rhythm without murmurs, gallops, or rubs. RESPIRATORY: Breath sounds equal bilaterally. No accessory muscle use. GASTROINTESTINAL: Abdomen soft, non-tender, nondistended. MUSCULOSKELETAL: No cyanosis, or edema. BACK: Nontender without obvious deformity. No CVA tenderness. Last Impressions Hospital Course While in hospital, patient was treated for: Questionable new infarct Repeat head CT July 18, 2017 unremarkable Patient has refused brain MRI Appreciate input from neurology was consulted He was treated with aspirin, Plavix, Statin PT to treat any above Chronic kidney disease stage III Currently at baseline Avoid all nephrotoxic drug History of hypertension He was treated with hydralazine 50 mg every 8, Norvasc 10 mg daily and Coreg 6.25 mg twice daily Hyperlipidemia He was treated with statin DVT prophylaxis: B-SCDs Pt Condition on Discharge: Good Discharge Disposition: Discharge to SNF Discharge Time: > 30 minutes Discharge Instructions DIET: Follow Instructions for: Heart Healthy Diet Activities you can perform: Regular-No Restrictions Follow up Referrals: PCP Follow-up - 1 Week New Medications: Hydralazine HCl (Hydralazine HCl) 25 Mg Tablet 50 MG PO TID for Blood Pressure Management, #90 MG 3 Refills Continued Medications: Amlodipine (Amlodipine) 10 Mg Tab 10 MG PO DAILY for Blood Pressure Management, #30 TAB 0 Refills Aspirin (Aspirin) 81 Mg Chew 81 MG CHEW DAILY, TAB 0 Refills Atorvastatin (Atorvastatin) 80 Mg Tab 80 MG PO HS for Cholesterol Management, #30 TAB 0 Refills Carvedilol (Carvedilol) 6.25 Mg Tab 6.25 MG PO BID, #60 TAB 0 Refills Clopidogrel (Plavix) 75 Mg Tab 75 MG PO DAILY for Blood Clot Prevention, #30 TAB 0 Refills Lorazepam (Lorazepam) 0.5 Mg Tab 0.5 MG PO Q8H PRN for ANXIETY, TAB 0 Refills Paroxetine (Paroxetine) 10 Mg Tab 10 MG PO DAILY, #30 TAB 0 Refills Terazosin (Terazosin) 2 Mg Cap 2 MG PO HS, #30 CAP 0 Refills Discontinued Medications: Hydralazine (Hydralazine) 100 Mg Tab 25 MG PO TID for Blood Pressure Management, TAB 0 Refills Take with meals Giovanny Cesar MD July 19, 2017 10:05
[2017-07-19 12:33] VITALS: BP 153/85; PULSE 70; RESP 17; TEMP 97.8; O2SAT 96
[2017-07-19 17:16] VITALS: BP 141/68; PULSE 64; RESP 18; TEMP 97.8; O2SAT 96
[2017-07-19 18:24] LABS: CHOLESTEROL 111 MG/DL (120-200); TRIGLYCERIDES 136 MG/DL (42-150)
[2017-07-19 18:26] LABS: CHOLESTEROL/ HDL RATIO 3.86 RATIO; HDL CHOLESTEROL 28.7 MG/DL (40.0-60.0); LDL CHOLESTEROL 55 MG/DL (0-99)
[2017-07-19 20:00] VITALS: BP 174/93; PULSE 69; RESP 20; TEMP 97.5; O2SAT 95
[2017-07-19] MEDS: TERAZOSIN HCL 1 MG CAP PO SCH (20:40)
[2017-07-19] MEDS: ATORVASTATIN 40 MG TAB PO SCH (20:40)
[2017-07-20] VITALS: BP 153/73; PULSE 63; RESP 20; TEMP 96.9; O2SAT 96
[2017-07-20 08:00] VITALS: BP 149/82; PULSE 69; RESP 18; TEMP 98; O2SAT 96
[2017-07-20] MEDS: SODIUM CHLORIDE 0.9% FLUSH 10 ML FLUSH IV FLUSH SCH ×2 (08:44→20:11)
[2017-07-20] MEDS: hydrALAZINE HCL 50 MG TAB PO SCH ×3 (08:44→17:06)
[2017-07-20] MEDS: ASPIRIN EC 81 MG TABEC PO SCH (08:44)
[2017-07-20] MEDS: PARoxetine HCL 20 MG TAB PO SCH (08:45)
[2017-07-20] MEDS: CLOPIDOGREL 75 MG TAB PO SCH (08:45)
[2017-07-20] MEDS: CARVEDILOL 6.25 MG TAB PO SCH ×2 (08:45→20:14)
--- NOTE | 2017-07-20 09:15 | HHI.PR ---
Subjective Remarks Follow-up questionable new infarct July 19, 2027-patient seen and examined, repeat head CT unremarkable. Patient denies any acute event overnight. Stated he would like to go home instead of SNF. Vitals stable. July 19, 2017-patient seen and examined, no acute event overnight. Awaiting for discharge to SNF today July 20, 2017-patient seen and examined, stable and no complaint. Objective Vitals Vital Signs Date Time Temp Pulse Resp B/P (MAP) Pulse Ox O2 Delivery O2 Flow Rate FiO2 07/20/17 00:00 96.9 63 20 153/73 (99) 96 07/19/17 20:00 97.5 69 20 174/93 (120) 95 07/19/17 17:16 97.8 64 18 141/68 (92) 96 07/19/17 12:33 97.8 70 17 153/85 (107) 96 I/O 07/19/17 07/19/17 07/19/17 07/20/17 07/20/17 07/20/17 07:00 15:00 23:00 07:00 15:00 23:00 Intake Total 720 ml 480 ml Balance 720 ml 480 ml Intake Oral 720 ml 480 ml # Voids 2 4 2 # Bowel Movements 0 1 Result Diagram: 07/16/17203407/16/172034 Imaging Last Impressions Head CT 07/18/17 0600 Signed Impressions: CONCLUSION: 1. No acute hemorrhage or mass effect. 2. Old right middle cerebral territory infarct. 3. Diffuse atrophy. Objective Remarks GENERAL: NAD SKIN: Warm and dry. HEAD: Normocephalic. EYES: No scleral icterus. No injection or drainage. NECK: Supple, trachea midline. No JVD or lymphadenopathy. CARDIOVASCULAR: Regular rate and rhythm without murmurs, gallops, or rubs. RESPIRATORY: Breath sounds equal bilaterally. No accessory muscle use. GASTROINTESTINAL: Abdomen soft, non-tender, nondistended. MUSCULOSKELETAL: No cyanosis, or edema. BACK: Nontender without obvious deformity. No CVA tenderness. 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) ICD Code: I63.9 - Cerebral infarction, unspecified; R29.818 - Other symptoms and signs involving the nervous system Status: Acute Assessment and Plan 62-year-old man with Questionable new infarct Repeat head CT July 18, 2017 unremarkable Patient has refused brain MRI Appreciate input from neurology Continue with aspirin, Plavix, Statin PT to treat any above Chronic kidney disease stage III Currently at baseline Avoid all nephrotoxic drug History of hypertension Continue hydralazine 50 mg every 8, Norvasc 10 mg daily and Coreg 6.25 mg twice daily Hyperlipidemia Currently on Statin DVT prophylaxis: B-SCDs Continue current treatment Discharge Planning Discharge patient to home Condition on discharge: Improved Regular Diet as tolerated [facility] activity Rx written:see EMR Follow-up with primary care physician in 1week Giovanny Cesar MD July 20, 2017 09:15
[2017-07-20 11:22] VITALS: BP 133/82; PULSE 71; RESP 17; TEMP 98.6; O2SAT 96
[2017-07-20 16:00] VITALS: BP 146/87; PULSE 72; RESP 18; TEMP 97.9; O2SAT 95
[2017-07-20 16:43] VITALS: BP 146/87; PULSE 72; RESP 18; TEMP 97.6; O2SAT 72
[2017-07-20 20:00] VITALS: BP 196/90; PULSE 64; RESP 18; TEMP 97; O2SAT 96
[2017-07-20] MEDS: TERAZOSIN HCL 1 MG CAP PO SCH (20:14)
[2017-07-20] MEDS: ATORVASTATIN 40 MG TAB PO SCH (20:14)
[2017-07-21] VITALS: BP 141/78; PULSE 67; RESP 18; TEMP 97.6; O2SAT 94
[2017-07-21 07:49] VITALS: BP 177/92; PULSE 66; RESP 18; TEMP 96.7; O2SAT 97
[2017-07-21] MEDS: CLOPIDOGREL 75 MG TAB PO SCH (08:37)
[2017-07-21] MEDS: SODIUM CHLORIDE 0.9% FLUSH 10 ML FLUSH IV FLUSH SCH ×2 (08:37→19:59)
[2017-07-21] MEDS: PARoxetine HCL 20 MG TAB PO SCH (08:37)
[2017-07-21] MEDS: CARVEDILOL 6.25 MG TAB PO SCH ×2 (08:38→19:59)
[2017-07-21] MEDS: hydrALAZINE HCL 50 MG TAB PO SCH ×3 (08:38→17:27)
[2017-07-21] MEDS: ASPIRIN EC 81 MG TABEC PO SCH (08:38)
--- NOTE | 2017-07-21 09:44 | HHI.PR ---
Subjective Remarks Follow-up questionable new infarct July 19, 2027-patient seen and examined, repeat head CT unremarkable. Patient denies any acute event overnight. Stated he would like to go home instead of SNF. Vitals stable. July 19, 2017-patient seen and examined, no acute event overnight. Awaiting for discharge to SNF today July 20, 2017-patient seen and examined, stable and no complaint. July 21, 2017-patient seen and examined, no acute event overnight. Awaiting for discharge disposition. Objective Vitals Vital Signs Date Time Temp Pulse Resp B/P (MAP) Pulse Ox O2 Delivery O2 Flow Rate FiO2 07/21/17 07:49 96.7 66 18 177/92 (120) 97 07/21/17 00:00 97.6 67 18 141/78 (99) 94 07/20/17 20:00 97.0 64 18 196/90 (125) 96 07/20/17 16:43 97.6 72 18 146/87 (106) 72 07/20/17 16:00 97.9 72 18 146/87 (106) 95 07/20/17 11:22 98.6 71 17 133/82 (99) 96 I/O 07/20/17 07/20/17 07/20/17 07/21/17 07/21/17 07/21/17 07:00 15:00 23:00 07:00 15:00 23:00 Intake Total 480 ml 300 ml 720 ml 240 ml 300 ml Balance 480 ml 300 ml 720 ml 240 ml 300 ml Intake Oral 480 ml 300 ml 720 ml 240 ml 300 ml # Voids 2 1 5 2 # Bowel Movements 1 1 Objective Remarks GENERAL: NAD SKIN: Warm and dry. HEAD: Normocephalic. EYES: No scleral icterus. No injection or drainage. NECK: Supple, trachea midline. No JVD or lymphadenopathy. CARDIOVASCULAR: Regular rate and rhythm without murmurs, gallops, or rubs. RESPIRATORY: Breath sounds equal bilaterally. No accessory muscle use. GASTROINTESTINAL: Abdomen soft, non-tender, nondistended. MUSCULOSKELETAL: No cyanosis, or edema. BACK: Nontender without obvious deformity. No CVA tenderness. 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) ICD Code: I63.9 - Cerebral infarction, unspecified; R29.818 - Other symptoms and signs involving the nervous system Status: Acute Assessment and Plan 62-year-old man with Questionable new infarct Repeat head CT July 18, 2017 unremarkable Patient has refused brain MRI Appreciate input from neurology Continue with aspirin, Plavix, Statin PT to treat any above Chronic kidney disease stage III Currently at baseline Avoid all nephrotoxic drug History of hypertension Continue hydralazine 50 mg every 8, Norvasc 10 mg daily and Coreg 6.25 mg twice daily Hyperlipidemia Currently on Statin DVT prophylaxis: B-SCDs Continue current treatment as of July 21, 2017 Discharge Planning Discharge patient to home Condition on discharge: Improved Regular Diet as tolerated [facility] activity Rx written:see EMR Follow-up with primary care physician in 1week Giovanny Cesar MD July 21, 2017 09:44
[2017-07-21 11:10] VITALS: BP 161/79; PULSE 63; RESP 18; TEMP 97.3; O2SAT 97
[2017-07-21 12:55] LABS: HEMOGLOBIN A1C 6.9 % (4.3-6.0)
[2017-07-21 13:35] VITALS: BP 174/84; PULSE 63; RESP 18; TEMP 97.4; O2SAT 96
[2017-07-21] MEDS: TERAZOSIN HCL 1 MG CAP PO SCH (20:00)
[2017-07-21] MEDS: ATORVASTATIN 40 MG TAB PO SCH (20:00)
[2017-07-21 20:26] VITALS: BP 185/93; PULSE 71; RESP 20; TEMP 96.7; O2SAT 94
[2017-07-22 00:13] VITALS: BP 141/76; PULSE 63; RESP 20; TEMP 96.5; O2SAT 95
[2017-07-22] MEDS: PARoxetine HCL 20 MG TAB PO SCH (08:23)
[2017-07-22] MEDS: CLOPIDOGREL 75 MG TAB PO SCH (08:23)
[2017-07-22] MEDS: hydrALAZINE HCL 50 MG TAB PO SCH ×2 (08:23→11:45)
[2017-07-22] MEDS: SODIUM CHLORIDE 0.9% FLUSH 10 ML FLUSH IV FLUSH SCH (08:24)
[2017-07-22] MEDS: CARVEDILOL 6.25 MG TAB PO SCH (08:24)
[2017-07-22] MEDS: ASPIRIN EC 81 MG TABEC PO SCH (08:24)
[2017-07-22 08:32] VITALS: BP 140/88; PULSE 62; RESP 16; TEMP 98; O2SAT 95
--- NOTE | 2017-07-22 10:18 | HHI.PR ---
Subjective Remarks Follow-up questionable new infarct July 19, 2027-patient seen and examined, repeat head CT unremarkable. Patient denies any acute event overnight. Stated he would like to go home instead of SNF. Vitals stable. July 19, 2017-patient seen and examined, no acute event overnight. Awaiting for discharge to SNF today July 20, 2017-patient seen and examined, stable and no complaint. July 21, 2017-patient seen and examined, no acute event overnight. Awaiting for discharge disposition. July 22, 2017-patient seen and examined, stable. Patient has no complaint. Objective Vitals Vital Signs Date Time Temp Pulse Resp B/P (MAP) Pulse Ox O2 Delivery O2 Flow Rate FiO2 07/22/17 08:32 98.0 62 16 140/88 (105) 95 07/22/17 00:13 96.5 63 20 141/76 (97) 95 07/21/17 20:26 96.7 71 20 185/93 (123) 94 07/21/17 13:35 97.4 63 18 174/84 (114) 96 07/21/17 11:10 97.3 63 18 161/79 (106) 97 I/O 07/21/17 07/21/17 07/21/17 07/22/17 07/22/17 07/22/17 07:00 15:00 23:00 07:00 15:00 23:00 Intake Total 240 ml 300 ml 780 ml Balance 240 ml 300 ml 780 ml Intake Oral 240 ml 300 ml 780 ml # Voids 2 6 0 # Bowel Movements 0 Objective Remarks GENERAL: NAD SKIN: Warm and dry. HEAD: Normocephalic. EYES: No scleral icterus. No injection or drainage. NECK: Supple, trachea midline. No JVD or lymphadenopathy. CARDIOVASCULAR: Regular rate and rhythm without murmurs, gallops, or rubs. RESPIRATORY: Breath sounds equal bilaterally. No accessory muscle use. GASTROINTESTINAL: Abdomen soft, non-tender, nondistended. MUSCULOSKELETAL: No cyanosis, or edema. BACK: Nontender without obvious deformity. No CVA tenderness. 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) ICD Code: I63.9 - Cerebral infarction, unspecified; R29.818 - Other symptoms and signs involving the nervous system Status: Acute Assessment and Plan 62-year-old man with Questionable new infarct Repeat head CT July 18, 2017 unremarkable Patient has refused brain MRI Appreciate input from neurology Continue with aspirin, Plavix, Statin PT to treat any above Chronic kidney disease stage III Currently at baseline Avoid all nephrotoxic drug History of hypertension Continue hydralazine 50 mg every 8, Norvasc 10 mg daily and Coreg 6.25 mg twice daily Hyperlipidemia Currently on Statin DVT prophylaxis: B-SCDs Continue current treatment as of July 22, 2017 Discharge Planning Discharge patient to home Condition on discharge: Improved Regular Diet as tolerated [facility] activity Rx written:see EMR Follow-up with primary care physician in 1week Giovanny Cesar MD July 22, 2017 10:18
--- NOTE | 2017-07-22 11:35 | HHI.FF ---
Face to Face Verification Diagnosis: (1) Accelerated hypertension (2) CKD (chronic kidney disease) stage 3, GFR 30-59 ml/min (3) Cognitive impairment (4) Neurologic deficit due to acute ischemic cerebrovascular accident (CVA) Speech Therapy Order: To Improve: Speech and communication skills I have seen patient Eric Najera on 07/22/17. My clinical findings support the need for the requested home health care services because: Patient has SOB I certify that my clinical findings support that this patient is homebound because: Poor cardiac reserve Giovanny Cesar MD July 22, 2017 11:35
== END 2017-07-22 12:09 | disposition home or self-care (01) ==
LOC: PHED 20:29 → PHEDA 22:15 → PH3B 23:37 → UNDODISOB 07-18 15:25
PROVIDERS: ADMIT Hospitalist; ATTEND Hospitalist
DX: R41.89 Other symptoms and signs involving cognitive functions and awareness (principal); R47.81 Slurred speech; G93.89 Other specified disorders of brain; R29.810 Facial weakness; I25.2 Old myocardial infarction; N18.3 Chronic kidney disease, stage 3 (moderate); I12.9 Hypertensive chronic kidney disease with stage 1 through stage 4 chronic kidney disease, or unspecified chronic kidney disease; I25.10 Atherosclerotic heart disease of native coronary artery without angina pectoris; F40.240 Claustrophobia; M54.9 Dorsalgia, unspecified; R79.1 Abnormal coagulation profile; E87.8 Other disorders of electrolyte and fluid balance, not elsewhere classified; D64.9 Anemia, unspecified; Z79.82 Long term (current) use of aspirin; Z86.73 Personal history of transient ischemic attack (TIA), and cerebral infarction without residual deficits; Z79.01 Long term (current) use of anticoagulants
CPT/HCPCS: 70450; 80048; 80061; 80307; 81001; 82550; 83036; 84484; 85025; 85384; 85610; 85730; 86850; 86900; 86901; 92610; 93005; 93306; 96360; 97110; 97116; 97127; 97162; 97167; 97535; 99291; G0378; G8987; G8988; J7030